=== PATIENT | female | born 1990 | race American Indian/Alaskan Native ===

== ENCOUNTER 2017-02-21 16:45 | Emergency (ER) | payer SELFPAY ==
[2017-02-21 17:16] LABS: Hematocrit 34.9 % (30.3-42.9); Hemoglobin 11.9 gm/dl (10.1-14.3); Mean Corpuscular HGB Conc 34 % (30-34); Mean Corpuscular Hemoglobin 31 pg (28-32); Mean Corpuscular Volume 91 fl (79-97); Platelet Count 262 K/mm3 (140-440); Red Blood Count 3.83 M/mm3 (3.65-5.03); Red Cell Distribution Width 13.1 % (13.2-15.2); White Blood Count 7.7 K/mm3 (4.5-11.0)
[2017-02-21 17:35] LABS: Anion Gap 18 mmol/L; BUN/Creatinine Ratio 12.85; Blood Urea Nitrogen 9 mg/dL (7-17); Calcium 9.3 mg/dL (8.4-10.2); Carbon Dioxide 24 mmol/L (22-30); Chloride 99.3 mmol/L (98-107); Glucose 84 mg/dL (65-100); Potassium 4.3 mmol/L (3.6-5.0); Sodium 137 mmol/L (137-145)
[2017-02-21 17:57] LABS: Bacteria,Urine 1+ /HPF (Negative); Bilirubin,Urine NEG (Negative); Blood,Urine NEG (Negative); Ketones,Urine NEG (Negative); Leukocyte Esterase,Urine MOD (Negative); Mucus,Urine 1+ /HPF; Nitrite,Urine NEG (Negative); Protein,Urine <15 mg/dL mg/dL (Negative)
[2017-02-21] MEDS ORDERED: TYLENOL PO ONE (19:16)
--- NOTE | 2017-02-21 20:25 | Ultrasound Report ---
FINAL REPORT EXAM: US OB \T\lt; = 14 WEEKS FETUS HISTORY: pain and COMPARISON: None available. TECHNIQUE: Several real-time grayscale and color Doppler images were obtained. Transabdominal exam. FINDINGS: The uterus measures 9.5 x 6.3 x 6.1 centimeters. A single live IUP is demonstrated with heart rate 161 beats per minute. No adnexal masses are demonstrated. IMPRESSION: Single live IUP is demonstrated. Estimated gestational age is not provided on this exam. There appears to be a transvaginal followup exam. Please see that report for further details.
--- NOTE | 2017-02-21 20:27 | Ultrasound Report ---
FINAL REPORT EXAM: US OB TRANSVAGINAL HISTORY: pain and COMPARISON: Ob ultrasound from the same date. TECHNIQUE: Several real-time grayscale and color Doppler images were obtained. Transvaginal exam. FINDINGS: Single live IUP. Estimated gestational age 7 weeks 2 days. Estimated delivery date October 08, 2017. heart rate 162 beats per minute. Yolk sac is present. Right ovary measures 2.2 x 1.2 x 1.4 centimeters. Left ovary measures 2.7 x 2.3 x 1.8 centimeters. There is gross vascular flow to the ovaries. No adnexal masses. IMPRESSION: Single live IUP. Estimated gestational age 7 weeks 2 days. Estimated delivery date October 08, 2017.
[2017-02-21] MEDS ORDERED: PROVENTIL IH ONE (22:06)
[2017-02-21] MEDS ORDERED: NACL ONE (22:34)
--- NOTE | 2017-02-21 23:40 | Emergency Department Report ---
ED Chest Pain HPI - General Chief Complaint: Dyspnea/Respdistress Stated Complaint: SOB Time Seen by Provider: 02/21/17 21:42 Source: patient Mode of arrival: Ambulatory Limitations: No Limitations - History of Present Illness Initial Comments: 26 yo female with no PMHx presenting to ED complaining of chest pain and SOB. Onset of symptoms started 1 week prior. Patient denies inciting factor. Patient states chest pain is located anterior chest wall, intermittent, worse with movement, improves with rest. Patient states over the last 48 hours the chest pain ahas been accompanied by shortness of breath. Patient states shortness of breath is intermittent and and has no improving or worsening factors. She denies: Fever/chills, cough, hemoptysis, lower extremity edema. Patient has no history of DVT/PE. Patient's laceration is 7 weeks . MD Complaint: chest pain -: week(s) (1) Onset: during rest, during exertion Pain Location: other (anterior chest wall ) Pain Radiation: none Severity: moderate Severity scale (0 -10): 10 Quality: tightness, aching Consistency: intermittent Improves With: nothing Worsens With: nothing re: dyspnea. denies: nausea, vomting, diaphoresis Other Symptoms: denies: cough, palpitations - Related Data Previous Rx's Medication Instructions Recorded Last Taken Type Acetaminophen/Codeine [Tylenol 1 tab PO Q6H PRN #15 tab 02/22/17 Unknown Rx /Codeine # 3 tab] Pnv with Ca,No.72/Iron/FA 1 each PO DAILY #30 tablet 02/22/17 Unknown Rx [ Plus Tablet] RX: ALBUTEROL Inhaler [ProAir HFA 2 puff IH QID PRN #1 inhalation 02/22/17 Unknown Rx Inhaler] Allergies Allergy/AdvReac Type Severity Reaction Status Date / Time No Known Allergies Allergy Verified 02/21/17 22:38 Heart Score - HEART Score History: Slightly suspicious EKG: Normal Age: < 45 Risk factors: No known risk factors Troponin: < normal limit HEART Score: 0 - Critical Actions Critical Actions: 0-3 pts:0.9-1.7%risk of adverse cardiac event.Candidate for discharge ED Review of Systems ROS: Stated complaint: SOB,PAINFUL URNIATION Other details as noted in HPI Constitutional: denies: chills, fever Eyes: denies: eye pain, eye discharge, vision change ENT: denies: ear pain, throat pain Respiratory: denies: cough, shortness of breath, wheezing Cardiovascular: chest pain. denies: palpitations Endocrine: no symptoms reported Gastrointestinal: denies: abdominal pain, nausea, diarrhea Genitourinary: denies: urgency, dysuria, discharge Musculoskeletal: denies: back pain, joint swelling, arthralgia Skin: denies: rash, lesions Neurological: denies: headache, weakness, paresthesias Psychiatric: denies: anxiety, depression Hematological/Lymphatic: denies: easy bleeding, easy bruising ED Past Medical Hx - Past Medical History Hx Hypertension: Yes - Surgical History Additional Surgical History: 04/2017 - Social History Smoking Status: Current Every Day Smoker Substance Use Type: None - Medications Home Medications: Home Medications Medication Instructions Recorded Confirmed Last Taken Type Acetaminophen/Codeine [Tylenol 1 tab PO Q6H PRN #15 tab 02/22/17 Unknown Rx /Codeine # 3 tab] Pnv with Ca,No.72/Iron/FA 1 each PO DAILY #30 tablet 02/22/17 Unknown Rx [ Plus Tablet] RX: ALBUTEROL Inhaler [ProAir HFA 2 puff IH QID PRN #1 inhalation 02/22/17 Unknown Rx Inhaler] ED Physical Exam - General Limitations: No Limitations General appearance: alert, in no apparent distress - Head Head exam: Present: atraumatic, normocephalic - Eye Eye exam: Present: normal appearance - ENT ENT exam: Present: mucous membranes moist - Neck Neck exam: Present: normal inspection - Respiratory Respiratory exam: Present: normal lung sounds bilaterally. Absent: respiratory distress, wheezes, rales, rhonchi, chest wall tenderness, accessory muscle use, decreased breath sounds - Cardiovascular Cardiovascular Exam: Present: regular rate, normal rhythm. Absent: systolic murmur, diastolic murmur, rubs, gallop - GI/Abdominal GI/Abdominal exam: Present: soft, normal bowel sounds - Extremities Exam Extremities exam: Present: normal inspection. Absent: calf tenderness - Back Exam Back exam: Present: normal inspection - Neurological Exam Neurological exam: Present: alert, oriented X3 - Psychiatric Psychiatric exam: Present: normal affect, normal mood - Skin Skin exam: Present: warm, dry, intact, normal color. Absent: rash ED Course Vital Signs 02/21/17 02/21/1702/21/17 16:49 19:25 21:47 Temperature 98.3 F Pulse Rate 81 80 Pulse Rate [ Posterior] Respiratory 20 18 18 Rate Respiratory Rate [Posterior ] Blood Pressure 167/99 Blood Pressure 153/85 [Right] O2 Sat by Pulse 100 100 Oximetry 02/21/17 02/21/17 02/21/17 21:48 22:20 22:57 Temperature Pulse Rate 80 Pulse Rate [ 97 H 101 H Posterior] Respiratory Rate Respiratory 17 22 Rate [Posterior ] Blood Pressure Blood Pressure [Right] O2 Sat by Pulse Oximetry 02/21/17 23:51 Temperature Pulse Rate 80 Pulse Rate [ Posterior] Respiratory 18 Rate Respiratory Rate [Posterior ] Blood Pressure Blood Pressure 165/81 [Right] O2 Sat by Pulse 100 Oximetry ED Medical Decision Making - Lab Data Result diagrams: 02/21/17 16:58 02/21/17 16:58 - EKG Data -: EKG Interpreted by Me EKG shows normal: sinus rhythm (72), axis, intervals, QRS complexes Rate: normal - Radiology Data Radiology results: report reviewed, image reviewed No evidence of acute pulmonary emboli. The lungs are clear without infiltrate or effusion or pneumothorax. Dr Evans VIEIRA - Medical Decision Making 26-year-old female presenting to the emergency room complaining of chest pain, shortness of breath. Symptoms are not consistent with: ACS, PE, pneumothorax, dissection. Patient states pain has improved and she is a greasy stable discharge home with PCP, cardiology, OB follow-up. Critical Care Time: No Critical care attestation.: If time is entered above; I have spent that time in minutes in the direct care of this critically ill patient, excluding procedure time. ED Disposition Clinical Impression: Chest pain, Shortness of breath, Disposition: DC-[id number] TO HOME OR SELFCARE Is pt being admited?: No Does the pt Need Aspirin: No Condition: Stable Instructions: Chest Pain (ED) Prescriptions: Acetaminophen/Codeine [Tylenol /Codeine # 3 tab] 1 tab PO Q6H PRN #15 tab PRN Reason: Pain , Severe (7-10) RX: ALBUTEROL Inhaler [ProAir HFA Inhaler] 2 puff IH QID PRN #1 inhalation PRN Reason: Shortness Of Breath Pnv with Ca,No.72/Iron/FA [ Plus Tablet] 1 each PO DAILY #30 tablet Referrals: RAHUL LOFTON MD [Staff Physician] - 3-5 Days YANNI BECKER MD [Staff Physician] - 2-3 Days PRIMARY CAREMD [Primary Care Provider] - 2-3 Days Forms: Work/School Release Form(ED)
[2017-02-21 23:51] VITALS: BP 165/81
--- NOTE | 2017-02-22 01:24 | Cat Scan Report ---
FINAL REPORT PROCEDURE: CT ANGIO CHEST TECHNIQUE: Computerized tomographic angiography of the chest was performed after the IV injection of iodinated nonionic contrast including image processing. The image data was postprocessed using 2-dimensional multiplanar reformatted (MPR) and 3-dimensional (MIP and/or volume rendered) techniques. HISTORY: CHEST PAIN SOB (7 WEEKS PREG) COMPARISON: No prior studies are available for comparison. FINDINGS: Heart and pericardium: Normal. Thoracic aorta: Normal. Pulmonary vasculature: Normal. Lymph nodes: No enlarged thoracic lymph nodes. Lungs: Lungs are clear. No infiltrate, effusion or pneumothorax. The central airway is patent.. Pleural space: No effusion, thickening, or pneumothorax. Musculoskeletal structures: No significant abnormality. Upper abdominal structures: No significant abnormality. IMPRESSION: There is no evidence of pulmonary arterial emboli. The lungs are clear without infiltrate effusion or pneumothorax.
== END 2017-02-22 02:47 | disposition home or self-care (01) ==
LOC: ED 16:45
DX: O26.91 Pregnancy related conditions, unspecified, first trimester (principal); R07.9 Chest pain, unspecified; R06.02 Shortness of breath; Z3A.01 Less than 8 weeks gestation of pregnancy
CPT/HCPCS: 36415; 71275; 76801; 76817; 80048; 81001; 81025; 84484; 84702; 85027; 93005; 93010; 94640; 99284; Q9967

== ENCOUNTER 2017-12-17 19:07 | Emergency (ER) | payer MEDICAID ==
[2017-12-17 19:44] VITALS: BP 145/85
[2017-12-17] MEDS ORDERED: TYLENOL ONE (19:44)
[2017-12-17] MEDS ORDERED: TYLENOL PO ONE (19:44)
[2017-12-17 20:28] LABS: Basophils # (Auto) 0.1 K/mm3 (0.0-0.1); Basophils % (Auto) 0.5 % (0.0-1.8); Eosinophils # (Auto) 0.1 K/mm3 (0.0-0.4); Eosinophils % (Auto) 1.2 % (0.0-4.3); Hematocrit 35.7 % (30.3-42.9); Hemoglobin 12.1 gm/dl (10.1-14.3); Lymphocytes # (Auto) 2.4 K/mm3 (1.2-5.4); Lymphocytes % (Auto) 22.8 % (13.4-35.0); Mean Corpuscular HGB Conc 34 % (30-34); Mean Corpuscular Hemoglobin 31 pg (28-32); Mean Corpuscular Volume 91 fl (79-97); Monocytes # (Auto) 0.8 K/mm3 (0.0-0.8); Monocytes % (Auto) 7.4 % (0.0-7.3); Platelet Count 292 K/mm3 (140-440); Red Blood Count 3.94 M/mm3 (3.65-5.03); Red Cell Distribution Width 13.3 % (13.2-15.2)
--- NOTE | 2017-12-17 23:43 | Ultrasound Report ---
FINAL REPORT PROCEDURE: US OB < = 14 WEEKS FETUS TECHNIQUE: Real-time transabdominal sonography of the uterus, placenta, amniotic fluid, adnexa, and fetus was performed with image documentation. Measurements were obtained to determine age/size. M-mode Doppler was used to document heartbeat. CPT 29527 HISTORY: . Vaginal bleeding. COMPARISON: Transvaginal OB ultrasound also performed today. FINDINGS: CRL: In there is a single living intrauterine gestation visualized with a heart rate of 161 beats per minute. Shape of the gestational sac appears normal. No evidence of subchorionic hemorrhage. [place]-rump length measurement 3.4 millimeters corresponds to an age of 10 weeks 2 days. Right ovary is visualized and appears normal measuring 2.6 x 1.7 x 1.9 centimeter. Left ovary not visualized. No abnormal adnexal masses are seen on the left. Report for this exam was generated using images from both the transabdominal and the transvaginal OB ultrasound both of which were performed today. IMPRESSION: There is a single living intrauterine gestation with a heart rate of 161 beats per minute. By crown-rump length measurement estimated age is 10 weeks 2 days placing EDC at 07/13/2018 plus or minus 1 week. No evidence of subchorionic hemorrhage.
--- NOTE | 2017-12-17 23:46 | Ultrasound Report ---
FINAL REPORT PROCEDURE: US TRANSVAGINAL TECHNIQUE: Real-time transvaginal sonography of the uterus, placenta, amniotic fluid, adnexa, and fetus was performed with image documentation. Measurements were obtained to determine age/size. M-mode Doppler was used to document heartbeat. CPT 70254 HISTORY: VAG BLDG. . COMPARISON: No prior studies are available for comparison. FINDINGS: There a single living intrauterine gestation visualized with a heart rate of 161 beats per minute. Shape of the gestational sac appears normal. No evidence of subchorionic hemorrhage. [place]-rump length measurement 3.4 millimeters corresponds to an age of 10 weeks 2 days. Right ovary is visualized and appears normal measuring 2.6 x 1.7 x 1.9 centimeter. Left ovary not visualized. No abnormal adnexal masses are seen on the left. Report for this exam was generated using images from both the transabdominal and the transvaginal OB ultrasound both of which were performed today. IMPRESSION: There is a single living intrauterine gestation with a heart rate of 161 beats per minute. By crown-rump length measurement estimated age is 10 weeks 2 days placing EDC at 07/13/2018 plus or minus 1 week. No evidence of subchorionic hemorrhage.
== END 2017-12-17 23:15 | disposition left against medical advice (07) ==
LOC: ED 19:07
DX: O20.9 Hemorrhage in early pregnancy, unspecified (principal); Z3A.10 10 weeks gestation of pregnancy; Z53.21 Procedure and treatment not carried out due to patient leaving prior to being seen by health care provider
CPT/HCPCS: 36415; 76801; 76817; 76830; 84702; 85025; 86850; 86900; 86901